=== PATIENT | female | born 1985 | race Caucasian/White ===

== ENCOUNTER 2017-07-16 10:29 | Emergency (ER) | payer OTHER ==
[~2017-07-16] VITALS: Ht 167.6 cm; Wt 66.0 kg
[2017-07-16 10:32] VITALS: BP 133/87
== END 2017-07-16 14:35 | disposition left against medical advice (07) ==
LOC: EDBD 10:41 → ER 10:41
DX: Z53.21 Procedure and treatment not carried out due to patient leaving prior to being seen by health care provider (principal)